=== PATIENT | male | born 1955 | race Caucasian/White ===

== ENCOUNTER 2023-03-29 09:10 | Day surgery (SDC) | payer MEDICARE ==
[~2023-03-29] VITALS: Ht 180.3 cm; Wt 72.3 kg
[2023-03-29] MEDS ORDERED: Enalapril Malea20 MG PO (09:25)
[2023-03-29] MEDS ORDERED: METFORMIN HCL500 M2 PO (09:25)
[2023-03-29] MEDS ORDERED: ATOR40TA (09:25)
--- NOTE | 2023-03-29 11:15 | NUR ---
03/29/23 1115 HELEN STODDARD RETURNED CELL WALLET KEYS GLASSES
== END 2023-03-29 11:24 | disposition home or self-care (01) ==
LOC: ORSCSDS 09:10
PROVIDERS: Internal Medicine Gastroenterology
PROC: 0DBL8ZX Excision of Transverse Colon, Via Natural or Artificial Opening Endoscopic, Diagnostic (ICD-10-PCS; principal; 2023-03-29 10:30)
PROC: 0DB98ZX Excision of Duodenum, Via Natural or Artificial Opening Endoscopic, Diagnostic (ICD-10-PCS; 2023-03-29 10:30)
PROC: 0DB68ZX Excision of Stomach, Via Natural or Artificial Opening Endoscopic, Diagnostic (ICD-10-PCS; 2023-03-29 10:30)
DX: D64.9 Anemia, unspecified (principal); D12.3 Benign neoplasm of transverse colon; D12.2 Benign neoplasm of ascending colon; K20.90 Esophagitis, unspecified without bleeding; K57.30 Diverticulosis of large intestine without perforation or abscess without bleeding; K64.8 Other hemorrhoids; B96.81 Helicobacter pylori [H. pylori] as the cause of diseases classified elsewhere; K29.50 Unspecified chronic gastritis without bleeding; F17.210 Nicotine dependence, cigarettes, uncomplicated; Z79.84 Long term (current) use of oral hypoglycemic drugs; Z79.899 Other long term (current) drug therapy
CPT/HCPCS: 82947; 88305; 88341; 88342; J2704; J7120